=== PATIENT | female | born 1950 | race Caucasian/White ===

== ENCOUNTER 2022-09-15 05:51 | Observation (INO) ==
--- NOTE | 2022-09-10 16:21 | Anesthesiology Consultation ---
Date of Service September 10, 2022 Assessment & Plan (1) Encounter for pre-operative examination: Plan - check BSG am DOS. - COVID screening: Per nutrition faculty member on 09/10/2022: COVID positive 08/30/22, symptoms resolved. Chart Review Chart Review: Acceptable Risk for Surgery and Patient NOT seen in Pre Admission Testing History Surgery Operation Date: 09/15/22 13:55 Proposed Procedures p Total Thyroidectomy - Jimmie Coffman MD Height/Weight Height: 5 ft 3 in Weight: 83.461 kg Allergies Allergy/AdvReac Type Severity Reaction Status Date / Time No Known Allergies Allergy Unknown Verified 09/10/22 15:30 Medications Home Medications Medication Instructions Recorded Confirmed Last Taken pantoprazole 40 mg tablet,delayed 40 mg PO QPM 06/18/18 09/10/22 06/29/18 release amoxicillin 500 mg tablet 2,000 mg PO ONCE #4 tabs 07/08/19 09/10/22 Unknown aspirin 81 mg tablet,delayed 81 mg PO BID 06/09/22 09/10/22 Unknown release (Adult Low Dose Aspirin) atorvastatin 20 mg tablet 20 mg PO QPM #90 tabs 06/09/22 09/10/22 Unknown diclofenac sodium 1 % topical gel 2 g topical BID PRN Pain 06/09/22 09/10/22 Unknown ibuprofen 600 mg tablet 600 mg PO Q6H PRN pain #90 tabs 06/09/22 09/10/22 Unknown magnesium oxide 400 mg PO QAM 06/09/22 09/10/22 Unknown omega 7-jhw-flu-fish oil 1,200 mg 1 cap PO BID #60 caps 06/09/22 09/10/22 Unknown (144 mg-216 mg) capsule (Fish Oil) calcium carbonate 600 mg calcium 1,200 mg PO BID #30 tabs 06/13/22 09/10/22 Unknown (1,500 mg) tablet ijpzcgmocni-oukclgkxr-dyfv747-hyal 1 tab PO BID #180 tabs 06/13/22 09/10/22 Unknown 750 mg-100 mg-125 mg-1.65 mg tablet (Glucosamine Chondroit Complx Advan) quinapril 20 mg tablet 20 mg PO BID 06/13/22 09/10/22 Unknown Probiotic 1 cap PO QAM 09/10/22 09/10/22 Unknown ascorbic acid (vitamin C) 1,000 mg 1 g PO QAM 09/10/22 09/10/22 Unknown capsule atenolol 50 mg tablet 50 mg PO QAM 09/10/22 09/10/22 Unknown hydrochlorothiazide 12.5 mg capsule 12.5 mg PO QAM 09/10/22 09/10/22 Unknown levothyroxine 75 mcg tablet 75 mcg PO QAM 09/10/22 09/10/22 Unknown riboflavin (vitamin B2) 400 mg 400 mg PO QAM 09/10/22 09/10/22 Unknown tablet sertraline 50 mg tablet (Zoloft) 50 mg PO QPM 09/10/22 09/10/22 Unknown Past Medical History Medical History (Updated 09/10/22 @ 16:25 by Betty Woodward PA-C) AAA (abdominal aortic aneurysm) 2.5 x 2.5 cm, last imaging 06/2021 Frequent PVCs GERD (gastroesophageal reflux disease) Hyperlipidemia Hypertension Hypothyroidism Lung nodule PCP monitors Nausea and vomiting after administration of anesthetic agent SVT (supraventricular tachycardia) prn f/u with [facility] cardio Thyroid cancer Type 2 diabetes mellitus Past Family History Family History Mother Diabetes Hypertension Heart disease Myocardial infarction Father Hypertension Heart disease Brother Coronary heart disease Leukemia Heart disease Hypertension Kidney stones Sister Diabetes Uterine cancer Endometrial cancer Ovarian cancer Sister Hypertension Denies family history of Prostate cancer Breast cancer Colorectal cancer Past Surgical History Surgical History Cataract bilateral Ganglion cyst right wrist: twice H/O bladder repair surgery H/O medial meniscus repair of right knee H/O total hysterectomy has 1 ovary remaining History of appendectomy History of arthroscopy of right shoulder History of bilateral tubal ligation History of carpal tunnel surgery of right wrist History of colonoscopy History of elbow surgery Rt History of hysterectomy History of total knee replacement LEFT Hx of esophagogastroduodenoscopy Lump lump removed from right side of neck Social History Smoking Status: Never smoker Do You Dip or Chew Tobacco: No Hx Alcohol Use: Yes alcohol intake frequency: holidays/special occasions only Hx Substance Use: No substance use type: does not use Testing Electrocardiogram Date: 12/17/21 Sinus bradycardia, rate 58 bpm LVH Poor precordial R wave progression Nonspecific T wave abnormality Echocardiogram Date: 01/25/20 EF 65% Normal LV wall motion Grade I diastolic dysfunction No significant valvular pathology Negative bubble study Other Testing Soft tissue neck CT 08/15/22 1. The recently biopsied 2.2 cm left thyroid nodule correlates with the area of palpable concern. 2. No pathologically enlarged lymph nodes identified. 3. No acute inflammatory changes. 4. Maxillary sinus disease as above. 5. Partially imaged 4 mm subpleural nodule of the right upper lobe. This could be evaluated with a 6 month follow-up CT of the chest.
[2022-09-15] MEDS ORDERED: LR 15ML/HR IV SCH (06:00)
[2022-09-15] MEDS ORDERED: LIDOCAINE 2% MPF LOCAL 5 ML VIAL INFIL ONE (06:35)
[2022-09-15] MEDS ORDERED: ROCURONIUM BROMIDE 10 MG/ML 5 ML VIAL IV ONE (06:35)
[2022-09-15] MEDS ORDERED: PROPOFOL IV EMULSION 10 MG/ML 20 ML VIAL IV ONE (06:35)
[2022-09-15] MEDS ORDERED: fentaNYL citrate PF 100 MCG/2 ML VIAL ONE (06:36)
[2022-09-15] MEDS ORDERED: MIDAZOLAM HCL 1 MG/ML 2ML VIAL ONE (06:36)
--- NOTE | 2022-09-15 06:49 | History & Physical Report ---
Date of Service September 15, 2022 Assessment & Plan (1) Encounter for pre-operative examination: (2) Papillary carcinoma of thyroid: Plan Ms. Westfall is a 72 year old female with a biopsy of the LEFT thyroid lobe showing follicular variant of papillary thyroid carcinoma who presents today for total thyroidectomy. History of Present Illness Primary Care Provider: Alma Bob DO Ms. Westfall is a 72 year old female with a biopsy of the LEFT thyroid lobe showing follicular variant of papillary thyroid carcinoma who presents for total thyroidectomy. There was extrathyroidal extension commented on the ultrasound, with no significant extension on CT imaging. Allergies Allergy/AdvReac Type Severity Reaction Status Date / Time No Known Allergies Allergy Unknown Verified 09/15/22 06:20 Home Medications Medication Instructions Recorded Confirmed Type pantoprazole 40 mg tablet,delayed 40 mg PO QPM 06/18/18 09/15/22 History release amoxicillin 500 mg tablet 2,000 mg PO ONCE #4 tabs 07/08/19 09/15/22 Rx aspirin 81 mg tablet,delayed 81 mg PO BID 06/09/22 09/15/22 History release (Adult Low Dose Aspirin) atorvastatin 20 mg tablet 20 mg PO QPM #90 tabs 06/09/22 09/15/22 Rx diclofenac sodium 1 % topical gel 2 g topical BID PRN Pain 06/09/22 09/15/22 History ibuprofen 600 mg tablet 600 mg PO Q6H PRN pain #90 tabs 06/09/22 09/15/22 Rx magnesium oxide 400 mg PO QAM 06/09/22 09/15/22 History omega 8-egj-ies-fish oil 1,200 mg 1 cap PO BID #60 caps 06/09/22 09/15/22 Rx (144 mg-216 mg) capsule (Fish Oil) calcium carbonate 600 mg calcium 1,200 mg PO BID #30 tabs 06/13/22 09/15/22 Rx (1,500 mg) tablet oniwovjhycc-cqbxehpdr-vhwr137-hyal 1 tab PO BID #180 tabs 06/13/22 09/15/22 Rx 750 mg-100 mg-125 mg-1.65 mg tablet (Glucosamine Chondroit Complx Advan) quinapril 20 mg tablet 20 mg PO BID 06/13/22 09/15/22 History Probiotic 1 cap PO QAM 09/10/22 09/15/22 History ascorbic acid (vitamin C) 1,000 mg 1 g PO QAM 09/10/22 09/15/22 History capsule atenolol 50 mg tablet 50 mg PO QAM 09/10/22 09/15/22 History hydrochlorothiazide 12.5 mg capsule 12.5 mg PO QAM 09/10/22 09/15/22 History levothyroxine 75 mcg tablet 75 mcg PO QAM 09/10/22 09/15/22 History riboflavin (vitamin B2) 400 mg 400 mg PO QAM 09/10/22 09/15/22 History tablet sertraline 50 mg tablet (Zoloft) 50 mg PO QPM 09/10/22 09/15/22 History Past Med/Surg History Medical History AAA (abdominal aortic aneurysm) 2.5 x 2.5 cm, last imaging 06/2021 Frequent PVCs GERD (gastroesophageal reflux disease) Hyperlipidemia Hypertension Hypothyroidism Lung nodule PCP monitors Nausea and vomiting after administration of anesthetic agent SVT (supraventricular tachycardia) prn f/u with [facility] Thyroid cancer Type 2 diabetes mellitus listed in [facility] records, pt denies Surgical History Cataract bilateral Ganglion cyst right wrist: twice H/O bladder repair surgery H/O medial meniscus repair of right knee H/O total hysterectomy has 1 ovary remaining History of appendectomy History of arthroscopy of right shoulder History of bilateral tubal ligation History of carpal tunnel surgery of right wrist History of colonoscopy History of elbow surgery Rt History of hysterectomy History of total knee replacement LEFT Hx of esophagogastroduodenoscopy Lump lump removed from right side of neck Family History Mother Diabetes Hypertension Heart disease Myocardial infarction Father Hypertension Heart disease Brother Coronary heart disease Leukemia Heart disease Hypertension Kidney stones Sister Diabetes Uterine cancer Endometrial cancer Ovarian cancer Sister Hypertension Denies family history of Prostate cancer Breast cancer Colorectal cancer Social History Smoking Status: Never smoker Second Hand Exposure: Yes; Do You Dip or Chew Tobacco: No; Hx Alcohol Use: Yes Hx Substance Use: No Preferred Language: Singaporean Communication Ability: Effective Service Supervisor Required: No Beliefs That Will Affect Care: None marital status: Current Living Situation: Spouse current occupational status: employed current occupation: works in [employer] at [employer] Feels Safe at Home: Yes Safety Concerns: Feels Safe At This Time Childhood Exposure to Second-Hand Smoke: Yes Dental Care, Regularly: Yes Seatbelt Use: always Sunscreen Use: Yes Assistive Devices: None Physical Exam Physical Exam: GENERAL: NAD, AOx3 FACE: Symmetric and intact EYES: EOMI, reactive and symmetric pupils EARS: Auricles are symmetric, external auditory canals are free of cerumen and patent; Tympanic membrane is clear without effusion, retraction, and lesions NOSE: Mild external deviation, mucosa intact; no polyps, purulence, or masses ORAL CAVITY: No trismus; Mucosal intact without lesions, ulcerations, or superficial changes; Tongue mobile OROPHARYNX: No masses or bleeding; No underlying changes of tonsillar pillars and pharyngeal mucosa; Symmetric palatal rise NECK: No masses, lymphadenopathy, or salivary tumors; Trachea midline RESPIRATORY: Symmetric chest expansion, no wheezing, stridor, or shortness of breath CARDIAC: Warm and well perfused extremities, no evidence of peripheral vascular disease NEURO: Alert and oriented, CNII-XII grossly intact PG Care Time/CCT Total # of Minutes Spent Total Time Spent with Patient: Total time spent is greater than 50% in coordination of care (as documented) at patient's floor/unit and/or counseling patient: Coding Level of Care Code None Diagnoses Encounter for pre-operative examination Z01.818 Papillary carcinoma of thyroid C73
[2022-09-15] MEDS ORDERED: ceFAZolin 2000MG 2,000 MG/15 ML SYR IV ONE (06:59)
[2022-09-15] MEDS ORDERED: ceFAZolin 2,000 MG/15 ML IV PUSH IV ONE (07:01)
[2022-09-15] MEDS ORDERED: LIDOCAINE/EPINEPHRINE 1% 20 ML VIAL INFIL ONE (07:06)
[2022-09-15] MEDS ORDERED: GELATIN SPONGE 12-7MM ONE ×2 (07:06→08:08)
[2022-09-15] MEDS ORDERED: LIDOCAINE/EPINEPHRINE 1% 20 ML VIAL ONE (07:06)
[2022-09-15] MEDS ORDERED: SCOPOLAMINE 1 MG TDSY TD ONE (07:19)
[2022-09-15] MEDS ORDERED: SCOPOLAMINE 1 MG TDSY TD STA (07:32)
[2022-09-15] MEDS ORDERED: PROMETHAZINE HCL 12.5 MG in SODIUM CHLORIDE 0.9% 50 ML IV PRN (07:33)
[2022-09-15] MEDS ORDERED: ATROPINE SULFATE 0.1 MG/ML 10ML SYR IV PRN (07:33)
[2022-09-15] MEDS ORDERED: ONDANSETRON INJ 2 MG/ML 2 ML VIAL IV PRN (07:33)
[2022-09-15] MEDS ORDERED: ePHEDrine sulfate 50 MG/ML AMP IV PRN (07:33)
[2022-09-15] MEDS ORDERED: ONDANSETRON INJ 2 MG/ML 2 ML VIAL ONE ×2 (08:30→11:47)
[2022-09-15] MEDS ORDERED: DEXAMETHASONE SOD INJ 4 MG/ML VIAL ONE ×2 (08:30→08:31)
[2022-09-15] MEDS ORDERED: ceFAZolin 330 MG/ML 1 GM VIAL ONE (10:30)
[2022-09-15] MEDS ORDERED: GLYCOPYRROLATE 0.2 MG/ML VIAL ONE ×2 (11:11)
[2022-09-15] MEDS ORDERED: NEOSTIGMINE METHYLSULFATE 1 MG/ML 10ML VIAL ONE (11:11)
--- NOTE | 2022-09-15 11:27 | Post Operative Brief Note ---
PG Immediate Post Op with CF Date of Surgery September 15, 2022 Pre & Post Diagnosis Operation Date: 09/15/22 07:15 Pre-Op Diagnosis: Papillary carcinoma of thyroid Post-Op Diagnosis: Papillary carcinoma of thyroid I identified the patient and participated in the time-out.: Yes Procedure Operation Date: 09/15/22 07:15 Actual Procedures p Bilateral Total Thyroidectomy(Bilateral) - Luc Mooney MD Surgeon Luc Mooney MD Pole Frame Construction Worker Jimmie Coffman Estimated Blood Loss 40 Findings Consistent with Post-Op Diagnosis Adherent thyroid nodule with removal of surrounding strap muscles and identification and preservation of the nerve. Stimulated both nerves bilaterally throughout and again at the end of the case. Specimens Specimen Description: A. Left neck mass, evaluate for parathyroid (frozen section) B. Left thyroid C. Right thyroid
[2022-09-15] MEDS: HYDROmorphone INJ 1 MG/ML SYRINGE IV PRN ×4 (11:54→12:10)
[2022-09-15] MEDS ORDERED: oxyCODONE HCL IR 5 MG TAB (IMMEDIATE RELEASE) PO PRN (12:04)
[2022-09-15] MEDS ORDERED: diphenhydrAMINE 50 MG/ML VIAL IV ONE (12:27)
[2022-09-15] MEDS ORDERED: PROMETHAZINE HCL INJ 25 MG/ML 1 ML VIAL ONE (12:29)
[2022-09-15] MEDS ORDERED: SODIUM CHLORIDE 0.9% 50 ML BAG ONE (12:29)
[2022-09-15] MEDS: CALCIUM CARBONATE 1250MG TAB PO SCH ×2 (14:01→20:03)
[2022-09-15] MEDS: ACETAMINOPHEN 325 MG TAB PO SCH ×2 (14:02→20:03)
[2022-09-15] MEDS: CHECK SCOPOLAMINE PATCH PLACEMENT SCH (16:32)
[2022-09-16] MEDS: CHECK SCOPOLAMINE PATCH PLACEMENT SCH ×3 (00:08→16:26)
[2022-09-16] MEDS: ACETAMINOPHEN 325 MG TAB PO SCH ×4 (01:55→19:34)
[2022-09-16] MEDS ORDERED: LEVOTHYROXINE SODIUM 50 MCG TABLET PO SCH (06:30)
[2022-09-16] MEDS: CALCIUM CARBONATE 1250MG TAB PO SCH ×4 (08:21→20:40)
--- NOTE | 2022-09-29 01:24 | Operative Report ---
PG Post Operative Report Pre & Post Diagnosis Operation Date: 09/15/22 07:15 Pre-Op Diagnosis: Papillary carcinoma of thyroid Post-Op Diagnosis: Papillary carcinoma of thyroid I identified the patient and participated in the time-out.: Yes Procedure Operation Date: 09/15/22 07:15 Actual Procedures p Bilateral Total Thyroidectomy(Bilateral) - Luc Mooney MD Surgeon Luc Mooney MD Rubber Covering Machine Operator Jimmie Coffman Estimated Blood Loss 40 Findings Consistent with Post-Op Diagnosis Hard thyroid mass nearly encapsulating the left thyroid lobe that initially limited mobility and exposure of the recurrent laryngeal nerve posteriorly and required resection of strap musculature and dissection along the cricoid and thyroid cartilages directly to mobilize the nodule. Ultimately, this increased the difficulty, intensity, and added a substantial amount of time to the case, meeting criteria for a modifier 22. No other enlarged nodules; Nerve stimulated during, throughout, after resection of each lobe bilaterally, and at the end of the case; Three parathyroid glands left in place. Specimens Specimen(s): 1. Total Thyroidectomy 2. Left neck mass, evaluate for parathyroid tissue Anesthesia Type General Complications None Disposition Disposition: Recovery Room Indications Indications for Surgery: is a 72 year old female who presentedwith papillary thyroid carcinoma with extrathyroidal extension noted on ultrasonography who presents for total thyroidectomy. Sheelected to undergo the indicated procedure after extensive discussion regarding the risks,alternative options, and indicationsfor the surgery andpotential for radioactive iodinetreatment.Surgicalrisk in generalincludesbleeding, infection, damage to surrounding structures, scarring and poor wound healing, need for additional procedures, and uncommon but serious risks of general anesthesia. We additionally discussed intervention-specific risks which include hypoparathyroidism/hypocalcemia, recurrent laryngeal nerve injury, esophageal and tracheal injury, persistent or recurrent disease, and need for pathology-guided adjuvant therapy. Description of Procedure Operative Report Otolaryngology - Head and Neck Surgery OperativeDetails: The skin, subcutaneous tissue, and superficial fascia were incised sharply and the vertical extent of the resection was widely exposed. The sternohyoid muscles and intermuscular raphe were in the midline while avoiding the anterior jugular veins. The sternohyoid, followed by the sternothyroid muscles, were undermined and retracted laterally to reveal the substance of the thyroid gland. The deep strap muscles were attempted to be lifted and elevated away from the midline, however, a large thyroid mass obscured the normal fascial planes. While gross extrathyroidal extension was not obvious, there was certainly an i nflammatory or reactive fibrotic process at the least and the overlying strap muscles were left attached to the specimen, carrying the dissection more superficial to the posterior aspect of the muscle where the thyroid capsule and more typical plane of dissection was rejoined. Medially, the gland was mobilized from the tracheal cartilage up to the cricothyroid muscle, with visualization but without manipulation of the cricopharyngeus and underlying recurrent laryngeal nerve. Continuing towards the superior pole, the thyroid was retracted downwards and outwards, but required direct exposure and dissection of the perichondrium with an additional cuff of cricothyroidal muscle included with the specimen along the deep aspect of the thyroid. Once the deep portion was mobilized from the away from the cartilage suprastructure of the larynx, it was then mobile and inferior distraction splayed the soft tissue and fascial attachments which were transected until the superior neurovascular bundle was identified, cauterized, clipped, and divided. The superior thyroid artery and accompany veins were ligated at the capsule edge to protect the superior laryngeal nerve, which rests just adjacent. Dissection of the lateral and inferior aspect of the thyroid gland were similar, with continue to release the gland's capsule from its surrounding attachments and associated arteries and veins. As the inferior pole and medially components of the gland were liberated, the gland rolled over the trachea and the anatomical landmarks for the recurrent laryngeal nerve were slowly identified. While continuing to focus dissection in asupracapsular plane, a frozen section pathological specimen was negative, confirming there was not parathyroid tissue in a lobulated mass extending from the capsule and ultimately two parathyroid glands were preserved on this side. Although the nerve had not been specifically identified as of yet, the recurrent laryngeal nerve was uncovered given that its general vicinity and trajectory was more apparent after unveiling the spacial relationships between the cricopharyngeus muscle, cricothyroid joint, and proximal tracheoesophageal groove. Carefully, the nerve was traced to its entry into the larynx while releasing the thyroid from lateral to medial. To minimize neural trauma, devascularization, and shearing forces, we preferentially dissected on the thyroid and tracheal side if possible, and the nerve and surrounding tissues descended into the neck as the thyroid was released over the airway. Pre-Operative Briefing, Surgical Preparation, and Closure: Ms. Westfall was brought into the operating room, identified by name and medical record number, and transferred to the surgical table. She was preoxygenated, induced, and intubated by the anesthesia team with aneuromonitoringendotracheal tube using a visual display laryngoscope, her eyes were protected, and she was appropriately positioned and supported. Afterwards, time-out reconfirmed patient identity and medical record number and the operative team confirmed the operative site and laterality. Relevant images were displayed and team briefing verified patient-specific allergies, administration of antibiotic prophylaxis prior to surgical start, deep venous thrombosis prophylaxis, and any anticipated critical events, including blood loss, need for transfusion, vasopressor support, and airway concerns. The neck was extended with appropriate occipital support and thelaryngeal neuromonitoringsystem was confirmed to be functioning. A midline incision approximately 3 cm in length was designed and injected with lidocaine 1% with 1:100,000 epinephrine and the patient was prepped and draped. After removal of the thyroid gland, the neck wound was irrigated, hemostasis re- confirmed, and theremaining strap musculature was approximated with 3-0 vicryl sutures. The prior mobilized fasciocutaneous flaps were incorporated together through a multi-layer closurewith separate 3-0 vicryls layers for the platysma and deep dermis after which the cutaneous edges were reapposed with4-0 monocrylsfollowed by mastisol and steri-strips. At the conclusion of the surgical portion of the case,one drain was in place,there were no complications,and the patient was returned to the care of the anesthesia team. The name of the procedure was confirmed, all counts were correct, and the pathologic specimens were oriented and correctly labeled. I attest to the content of the Intraoperative Record and any orders documented therein. Any exceptions are noted below.
== END 2022-09-16 22:05 | disposition home or self-care (01) ==
LOC: ASU 05:51 → 3N 05:51

== ENCOUNTER 2024-11-11 08:29 | Observation (INO) ==
--- NOTE | 2024-10-19 12:56 | PAT Medication Instructions ---
Medication Instructions Date of Service October 19, 2024 Home Medications Medication Instructions Recorded ibuprofen 600 mg tablet 600 mg PO Q6H PRN pain #90 tabs 06/09/22 amoxicillin 500 mg tablet 2,000 mg (4 x 500 mg) PO ONCE #4 09/17/22 tabs ascorbic acid (vitamin C) 1,000 mg 1 g PO QAM #90 caps 10/01/22 capsule aspirin 81 mg tablet,delayed 81 mg PO BID #90 tabs 10/01/22 release (Adult Low Dose Aspirin) calcium carbonate 1,200 mg (2 x 600 mg calcium 10/01/22 (1,500 mg)) PO BID #180 tabs ipynojmljky-glxtxrkce-mwid603-hyal 1 tab PO BID #180 tabs 10/01/22 750 mg-100 mg-125 mg-1.65 mg tablet (Glucosamine Chondroit Complx Advan) magnesium oxide 400 mg PO QAM #90 caps 10/01/22 omega 4-cgt-faa-fish oil 1,200 mg 1 cap PO BID #180 caps 10/01/22 (144 mg-216 mg) capsule (Fish Oil) atenolol 50 mg tablet 50 mg PO QAM #90 tabs 10/05/23 lisinopril 40 mg tablet 40 mg PO QAM #90 tabs 10/05/23 hydrochlorothiazide 12.5 mg capsule 12.5 mg PO QAM #90 caps 11/25/23 sertraline 50 mg tablet (Zoloft) 50 mg PO QPM #90 tabs 03/25/24 atorvastatin 20 mg tablet 20 mg PO QPM #90 tabs 06/13/24 pantoprazole 40 mg tablet,delayed 40 mg PO BID #180 tabs 06/13/24 release diclofenac sodium 75 mg 75 mg PO BID PRN pain #60 tabs 08/17/24 tablet,delayed release ibuprofen 600 mg tablet 600 mg PO Q6H PRN pain Probiotic 1 cap PO QAM amoxicillin 500 mg tablet 2,000 mg (4 x 500 mg) PO ONCE ascorbic acid (vitamin C) 1,000 mg capsule 1 g PO QAM aspirin 81 mg tablet,delayed release (Adult Low Dose Aspirin) 81 mg PO BID calcium carbonate 1,200 mg (2 x 600 mg calcium (1,500 mg)) PO BID oypxauzjtbi-fkjozqsgn-ncoo727-hyal 750 mg-100 mg-125 mg-1.65 mg tablet (Glucosamine Chondroit Complx Advan) 1 tab PO BID magnesium oxide 400 mg PO QAM omega 6-qpr-gtu-fish oil 1,200 mg (144 mg-216 mg) capsule (Fish Oil) 1 cap PO BID atenolol 50 mg tablet 50 mg PO QAM lisinopril 40 mg tablet 40 mg PO QAM hydrochlorothiazide 12.5 mg capsule 12.5 mg PO QAM sertraline 50 mg tablet (Zoloft) 50 mg PO QPM atorvastatin 20 mg tablet 20 mg PO QPM pantoprazole 40 mg tablet,delayed release 40 mg PO BID diclofenac sodium 75 mg tablet,delayed release 75 mg PO BID PRN pain levothyroxine 75 mcg tablet 75 mcg PO QAM liothyronine 5 mcg tablet 10 mcg PO QAM polyethylene glycol 3350 17 gram/dose oral powder (Miralax) 17 g PO HS psyllium husk 3.4 gram/5.4 gram oral powder (Metamucil) 1 tbsp PO QAM Continue as directed amoxicillin 500 mg tablet 2,000 mg (4 x 500 mg) PO ONCE ASK your surgeon for instructions ibuprofen 600 mg tablet 600 mg PO Q6H PRN pain diclofenac sodium 75 mg tablet,delayed release 75 mg PO BID PRN pain ASK your prescriber and surgeon aspirin 81 mg tablet,delayed release (Adult Low Dose Aspirin) 81 mg PO BID STOP taking 2 weeks before surgery inuonncdqgg-nuwnklyke-bdez598-hyal 750 mg-100 mg-125 mg-1.65 mg tablet (Glucosamine Chondroit Complx Advan) 1 tab PO BID omega 2-cvs-mgk-fish oil 1,200 mg (144 mg-216 mg) capsule (Fish Oil) 1 cap PO BID DO NOT take the morning of surgery Probiotic 1 cap PO QAM ascorbic acid (vitamin C) 1,000 mg capsule 1 g PO QAM calcium carbonate 1,200 mg (2 x 600 mg calcium (1,500 mg)) PO BID magnesium oxide 400 mg PO QAM lisinopril 40 mg tablet 40 mg PO QAM hydrochlorothiazide 12.5 mg capsule 12.5 mg PO QAM psyllium husk 3.4 gram/5.4 gram oral powder (Metamucil) 1 tbsp PO QAM Take morning of surgery With a small sip of water, OTHERWISE NOTHING TO EAT OR DRINK AFTER MIDNIGHT: atenolol 50 mg tablet 50 mg PO QAM pantoprazole 40 mg tablet,delayed release 40 mg PO BID levothyroxine 75 mcg tablet 75 mcg PO QAM liothyronine 5 mcg tablet 10 mcg PO QAM Take evening before surgery calcium carbonate 1,200 mg (2 x 600 mg calcium (1,500 mg)) PO BID sertraline 50 mg tablet (Zoloft) 50 mg PO QPM atorvastatin 20 mg tablet 20 mg PO QPM pantoprazole 40 mg tablet,delayed release 40 mg PO BID polyethylene glycol 3350 17 gram/dose oral powder (Miralax) 17 g PO HS Other Notes If you have any questions please call us at [phone] or [phone] or [phone] or [phone]
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
[~2024-11-11 08:29] MED LIST: BUPIVACAINE 0.5 % 5 MG/1 ML PF 10ML VIAL ONE; ROPIVACAINE 0.5% 5 MG/ML 30 ML VIAL ONE
--- NOTE | 2024-11-11 08:39 | History & Physical Bridge Note ---
Date of Service November 11, 2024 History & Physical Bridge Note I have examined the patient, reviewed the History & Physical and in the interval since the performance of the History & Physical I have noted the following changes of clinical significance: no changes noted
[2024-11-11] MEDS ORDERED: ATROPINE SULFATE 0.1 MG/ML 10ML SYR IV PRN (08:56)
[2024-11-11] MEDS ORDERED: ONDANSETRON INJ 2 MG/ML 2 ML VIAL IV PRN ×2 (08:56→17:40)
[2024-11-11] MEDS ORDERED: HYDROmorphone INJ 1 MG/ML SYRINGE IV PRN (08:56)
[2024-11-11] MEDS ORDERED: fentaNYL citrate PF 100 MCG/2 ML VIAL IV PRN (08:56)
[2024-11-11] MEDS ORDERED: ePHEDrine sulfate 50 MG/ML AMP IV PRN (08:56)
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
[2024-11-11] MEDS: LR 500ML BOLUS, THEN 15ML/HR IV SCH (09:01)
[2024-11-11] MEDS: ACETAMINOPHEN 500 MG TAB PO SCH ×2 (09:02→18:29)
[2024-11-11] MEDS: CeleBREX 200 MG CAP PO SCH (09:02)
[2024-11-11] MEDS: METOCLOPRAMIDE HCL 10 MG TABLET PO SCH (09:02)
[2024-11-11] MEDS: FAMOTIDINE 20 MG TAB PO SCH (09:02)
[2024-11-11] MEDS: dexAMETHasone**PF** 10 MG/ML VIAL IV SCH (09:04)
[2024-11-11] MEDS ORDERED: MIDAZOLAM HCL 1 MG/ML 2ML VIAL ONE (09:41)
[2024-11-11] MEDS ORDERED: LIDOCAINE 2% 2 ML VIAL/AMP(20MG/ML) INFIL ONE (09:42)
[2024-11-11] MEDS ORDERED: fentaNYL citrate PF 100 MCG/2 ML VIAL ONE (09:42)
--- OUTSIDE RECORDS SUMMARY | 2024-11-11 10:05 | External Medical Summary | Summary of Care ---
Author Name Unknown Organization [facility] Address [address] [place] [address] Phone [phone] Care Team Providers Care Cryptography Teacher Name Role Phone Alma Bob DO Primary Care Provider + Encounter Details Date Type Department Care Team (Latest Contact Info) Description 11/01/2024 10:28 AM EDT - 11/01/2024 11:59 PM EDT Hospital Encounter Radiology, [facility] [address] [place] [address] Arrived Discharge Disposition: Home - Self Care Allergies No known active allergiesdocumented as of this encounter (statuses as of 11/02/2024) Medications GLUCOSAMINE CHONDROITIN COMPLX PO CAPS 1500mg/1200mg twice daily by mouth 2 Active OMEGA-3 FISH OIL 1200 MG PO CAPS twice daily by mouth 2 Active CALCIUM 9644-5763 MG-UNIT PO CHEW 1chew tab by mouth twice daily 5 Active zoster vac recomb adjuvanted (SHINGRIX) 50 MCG/0.5ML injectionIndicat ions:Need for vaccination for zoster Inject 0.5 mL into a large muscle now and repeat dose in 60 to 180 days 1 Each 1 0 Active aspirin enteric coated 81 MG TBEC Take 2 Tablets by mouth in the morning. Active Riboflavin 400 MG Oral Tablet Take 1 Tab by mouth daily. 30 Tab 2 1 Active Magnesium Oxide 400 MG Oral Capsule Take 1 Cap by mouth daily. 30 Cap 2 1 Active Diclofenac Sodium 1 % External Gel (Voltaren)Indica tions:Joint swelling Apply 2 g topically to affected area 2 times a day. 100 g 3 1 Active Amoxicillin 500 MG Oral Capsule (Amoxil) 4 TABLETS BY MOUTH 1 HR PRIOR TO DENTAL PROCEDURE 4 Capsule 1 Active Pantoprazole Sodium 40 MG Oral Tablet Delayed Release (Protonix)Indica tions:Gastroesop hageal reflux disease without esophagitis TAKE ONE (1) TABLET BY MOUTH ONCE DAILY FOR STOMACH ACID -TAKE 1/2HOUR BEFORE A MEAL 90 Tablet 3 2 Active Atorvastatin Calcium 20 MG Oral Tablet (Lipitor)Indicat ions:Hyperlipide roxanna TAKE 1 TABLET DAILY AT SUPPER 90 Tablet 2 2 Active Atenolol 50 MG Oral Tablet (Tenormin) TAKE 1 TABLET BY MOUTH EVERY DAY 90 Tablet 2 2 Active Docusate Sodium 100 MG Oral Capsule (Colace) Take by mouth 1 Capsule 2 times a day as needed for Constipation. 20 Capsule 2 Active Additional Information Patient not taking.Reported on 12/05/2022 Simethicone 80 MG Oral Tablet Chewable (Mylicon) Take by mouth 1 Tablet every 6 hours as needed for Gas. 30 Tablet 2 Active Levothyroxine Sodium 75 MCG Oral Tablet (Levoxyl) TAKE 1 TABLET BY MOUTH EVERY DAY AT LEAST 30 MIN BEFORE BREAKFAST OR OTHER MEDICATION 90 Tablet 1 2 Active Estradiol 0.1 MG/GM Vaginal Cream (Estrace) Administer 1 gram into the vagina every night for 30 days after surgery 42.5 g 2 Active Estradiol 0.1 MG/GM Vaginal Cream (Estrace) Administer into the vagina 1 g once a day on Thursday, Thursday, and Thursday only . as directed. 42.5 g 3 2 Active Ibuprofen 600 MG Oral Tablet (Motrin)Indicati ons:Chronic pain TAKE 1 TAB BY MOUTH EVERY 8 HOURS NEEDED FOR FEVER (TEMP GREATER THAN ) (PAIN). 90 Tablet 5 2 Active Additional Information Patient not taking.Reported on 01/05/2023 hydroCHLOROthiaz lizabeth 12.5 MG Oral Capsule (Hydrodiuril)Ind ications:HTN, goal below 140/90 TAKE 1 CAPSULE BY MOUTH EVERY DAY 90 Capsule 3 2 Active Sertraline HCl 50 MG Oral Tablet Take 1 Tablet by mouth in the morning. Active Lisinopril 40 MG Oral Tablet 40 MG ORALLY DAILY 3 Active HYDROcodone-Acet aminophen 5-325 MG Oral Tablet Take 1 Tablet by mouth every 6 hours as needed for Pain, Severe. 10 Tablet 3 Active Additional Information Patient not taking.Reported on 01/05/2023 documented as of this encounter (statuses as of 11/02/2024) Active Problems Problem Noted Date Diagnosed Date Vaginal vault prolapse, posthysterectomy 022 Stress incontinence, female 12/18/2021 Post-operative state 12/18/2021 SVT (supraventricular tachycardia) 08/14/2020 Thyroid nodule 08/11/2019 Controlled substance agreement signed 05/10/2019 Type 2 diabetes mellitus wit h hemoglobin A1c goal of less than 7.0% 07/29/2018 Hyperlipidemia with target LDL less than 70 06/13 HTN, goal below 140/90 08/15/2016 Acquired hypothyroidism 03/07/2016 Cervical nerve root impingement 03/21/2014 Frequent PVCs 12/27/2013 Gastroesophageal reflux disease without esophagi tis Overview (08/10/2019): Corrected code per AMP error Osteoarthrosis, localized, primary, involving lo wer leg Overview (04/15/2021): ICD-10 update of inactive term ICD-10 update of inactive term documented as of this encounter (statuses as of 11/02/2024) Resolved Problems Problem Noted Date Diagnosed Date Resolved Date Abdominal aortic aneurysm (A AA) without rupture 05/10/2019 09/21/2023 Overview (05/10/2019): On xray, accidental finding, 4.3 cm in 2019 Type 2 diabetes mellitus wit h diabetic neuropathy, unspecified 02/04/2019 02/04/2019 Encounter for examination fo r normal comparison and control in clinical research program 11/01/2018 02/13/2020 Overview (10/29/2020): DO NOT DELETE [facility] DETECT Study: Project # [id number], Freight Broker: Jose Juan Thorne, PhD. SUMMARY: Goal: Establish test characteristics (sensitivity, specificity, PPV, NPV) of a circulating tumor DNA (ctDNA)-based test for cancer. Hypothesis: Circulating tumor DNA (ctDNA) and elevated protein biomarkers (together, the marker panel) can be detected in asymptomatic individuals with early cancer. Specific Aim 1: Determine the prevalence of a positive marker panel test in a prospective clinical cohort of 10,000 asymptomatic women ages 65 to 75 years. Specific Aim 2: Determine the sensitivity, specificity, positive predictive value (PPV) and negative predictive value (NPV) of a marker panel test to identify histologically proven cancers that develop within 5-years of the marker panel evaluation. CONTACTS: During normal business hours, contact study staff at ; after hours Freight Broker via the [facility] hospital badger distiller operator . Please contact study team before resolving/deleting from patients problem list. Study phone number: [phone]. Diagnosis changed due to Research Module. Go to Snapshot for study details. Encounter for examination fo r normal comparison and control in clinical research program 11/01/2018 03/13/2022 Overview (10/29/2020): DO NOT DELETE - [facility] DETECT Study: Project # [id number], Freight Broker: Salvador Servin, MS, MPH. SUMMARY: Goal: Establish test characteristics (sensitivity, specificity, PPV, NPV) of a circulating tumor DNA (ctDNA)-based test for cancer. - Hypothesis: Circulating tumor DNA (ctDNA) and elevated protein biomarkers (together, the marker panel) can be detected in asymptomatic individuals with early cancer. - Specific Aim 1: Determine the prevalence of a positive marker panel test in a prospective clinical cohort of 10,000 asymptomatic women ages 65 to 75 years. - Specific Aim 2: Determine the sensitivity, specificity, positive predictive value (PPV) and negative predictive value (NPV) of a marker panel test to identify histologically proven cancers that develop within 5-years of the marker panel evaluation. - CONTACTS: During normal business hours, contact study staff at ; after hours Freight Broker via the [facility] hospital badger distiller operator . - Please contact study team before resolving/deleting from patients problem list. Study phone number: [phone]. Diagnosis changed due to Research Module. Go to Snapshot for study details. Severe obesity with body mas s index (BMI) of 35.0 to 39.9 with serious comorbidity 10/14/2017 Overview (04/28/2018): ICD-10 update of inactive diagnosis Borderline diabetes 01/02/2017 05/03/20 19 Overview (05/03/2019): DM Type [address] HTN, goal below 140/80 08/15/201608/15 Depression with anxiety 03/07/201610/12 Acute stress reaction causin g mixed disturbance of emotion and conduct 03/07/201607/10 Abnormal fasting glucose 11/02/2015 TSH elevation 11/02/2015 07/10/2017 HTN, goal below 150/90 12/18/201412/18 Open comedone 12/05/2014 07/10/2017 Other seborrheic keratosis 12/05/2014 1 Palpitations 12/27/2013 07/10/2017 Shortness of breath 12/27/2013 12/19/19 16 HTN, goal below 140/90 12/27/201312/18 Disorder of lip 11/16/2008 11/16/2008 Overview (04/13/2017): ICD-10 update of inactive term Disorder of lip 11/16/2008 02/04/2019 Overview (04/13/2017): ICD-10 update of inactive term HTN, goal to be determined 0 09/22/2014 Hyperlipidemia 12/19/2015 Pain in joint, upper arm Malaise and fatigue 07/10/20 17 documented as of this encounter (statuses as of 11/02/2024) Immunizations Name Administration Dates Next Due COVID-19 mRNA, LNP-s, No Pre serve, 2-Dose Series (Moderna) 04/17/2021,09/17/2020,08/15/2020 Pneumococcal Conjugate Vacc, 13 Valent (Prevnar) 09/22/2014 Pneumococcal Polysaccharide PPV23 (Pneumovax) 06/18/2015 Season Influenza, Quad, PF, Adjuvanted, 65+ Yrs, IM (FLUAD) 04/27/2021 Seasonal Influenza Vac., MDV , IM, 0.5 mL (Fluzone) 09/13/2013,07/23/2012,04/11/2011,04/12,03/28/2009 Seasonal Influenza, PF, 6 M & above, IM , (FluLaval or Fluzone) 04/27/2018,07/10/2017 Seasonal Influenza, Quadriva lent Hd, 65+ Yrs 05/10/2020 Seasonal Influenza, Quadriva lent, No Preserve, IM 04/18/2016,06/18/2015 Seasonal Influenza, Trivalen t, Adjuvanted, 65+ YRS, PF, (Fluad) 04/16/2019 TDAP, Age 7 and older, IM (Adacel) 09/13/2013 Tetanus Toxid Adsorbed 02/16/2001 Varicella Zoster Vaccine Albert lt (Zostavax) 12/11/2012 Zoster Vaccine Recombinant (Shingrix) 08/08/2019 documented as of this encounter Social History Tobacco Use Types Packs/Day Years Used Date Smoking Tobacco: Never Smokeless Tobacco: Never Alcohol Use Standard Drinks/Week Comments Yes 0 (1 standard drink = 0.6 oz pur e alcohol) social PHQ-2 Answer Date Recorded PHQ Adult Total Score 0 06/26/2021 Hunger Vital Sign Answer Date Recorded Worried About Running Out of Food in the Last Ye ar Never true 08/08/2019 Ran Out of Food in the Last Year Never true 08/08/2019 Comments No Sex and Gender Information Value Date Recorded Sex Assigned at Female 08/30/2022 10:35 AM EST Legal Sex Female 5:50 AM EST Gender Identity Female 08/30/2022 10:35 AM EST Sexual Orientation Straight 08/30/2022 10 :35 AM EST documented as of this encounter Plan of Treatment Upcoming Encounters Date Type Department Care Team (Late st Contact Info) Description 04/03/2025 3:10 PM EDT Office Visit Dermatology, [facility] [place] [address] [place] [address] Gail Mccurdy PA-C [address] [place] [id number] Pending Results Name Type Priority Associated Diagnoses Date /Time US HEAD AND NECK Medical Imaging Routine Personal history of malignant neoplasm of thyroid 11/01/2024 10:56 AM EDT Scheduled Orders Name Type Priority Associated Diagnoses Orde r Schedule US HEAD AND NECK Medical Imaging Routine Personal history of malignant neoplasm of thyroid 1 Occurrences starting 11/01/2024 until 11/01/2024 Scheduled Procedures Name Priority Associated Diagnoses Date/Ti me COLONOSCOPY FLEXIBLE PROXIMA L DIAGNOSTIC Recall Screening for colon cancer Health Maintenance Due Date Last Done Comments Depression Screening 1962 HOME BP CUFF VALIDATION YEARLY 03/13/2017 03/13/2016 HbA1c 12/25/2021 06/26/2021, 01/11, 01/20/2020, Additional history exists Diabetic Eye Exam 04/01/2022 04/01/2021, 08/17/2019 Albumin/Creatinine Ratio 08/15/2022 022, 08/10/2019, 07/09/2017 Diabetic Foot Exam 08/15/2022 08/15/2021, 0 08/14/2020, 08/08/2019, Additional history exists DTap/Tdap Vaccines (2 - Td or Tdap) 09/14/2023 09/13/2013, 02/16/2001 COVID-19 Vaccine ( season) 2024 03/10/2024, 03/30/2023, 03/30/2023, Additional history exists GFR 07/26/2024 07/26/2023, 06/12, 02/05/2021, Additional history exists Mammogram 08/05/2025 08/05/2024, 11/2023, 04/25/2022, Additional history exists TSH 08/05/2025 08/05/2024, 06/12, 02/05/2021, Additional history exists Colonoscopy 09/11/2025 09/11/2022, 08/2022, 02/01/2014, Additional history exists DXA Scan 08/05/2031 08/05/2024, 04/0 07/2021, 10/05/2014, Additional history exists Zoster Vaccines Completed 02/03/2023, 11/10, 08/08/2019, Additional history exists Pneumococcal Vaccine: 50+ Years Completed 07/10/2023, 06/18/2015, 09/22/2014 Influenza Vaccine (FLU shot) Completed , 03/30/2023, 04/12/2022, Additional history exists HPV (Gardasil) Vaccine Aged Out No lo nger eligible based on patient's age to complete this topic Hepatitis B Vaccine Aged Out No longe r eligible based on patient's age to complete this topic MENINGOCOCCAL (MENACTRA/MENVEO) Aged Out No longer eligible based on patient's age to complete this topic Meningitis B Vaccine (Bexsero/Trumemba) Aged Out No longer eligible based on patient's age to complete this topic documented as of this encounter Medical Devices Implanted Type Area President/Gm [employer] Device Identifier Shelf Expiration Date Model / Serial / Lot Sling Desara Blue Tv 1.1x45cm - [id number] Implanted:Qty: 1 on 12/17/2021 by Tr Dunn MD at [facility] N/A: Perineum [employer] 07/14/2022 [id number] / / [id number] Vertessa Lite Y-Mesh 26x5x4 Cm Implanted:Qty: 1 on 12/17/2021 by Tr Dunn MD at OR [facility] N/A: Perineum [employer] 05/19/2024 [id number] / / Sling Desara 1.1cm X 45cm - [id number] Implanted:Qty: 1 on 12/05/2022 by Tr Dunn MD at OR [facility] N/A: Vagina [employer] 05/08/2027 [id number] / / [id number] documented as of this encounter Visit Diagnoses Diagnosis Personal history of malignant neoplasm of thyroid documented in this encounter Advance Directives * Full Code (Latest Code Status on File) Date Activated Date Inactivated Comments 12/05/2022 12:49 PM 12/05/2022 7:18 PM This order reflects the patients wishes and were consensually agreed upon. Question Answer Comments Discussion of Advance Direct lisa occurred with: Not Discussed due to patient's condition * Full Code Date Activated Date Inactivated Comments 12/17/2021 11:41 AM 12/18/2021 5:42 PM This order re flects the patients wishes and were consensually agreed upon. Question Answer Comments Discussion of Advance Directives occurred with: Not Discussed Care Teams Cryptography Teacher Relationship Specialty Start Date End Date Alma Bob DO [address] [place] [address] PCP - General Family Medicine 08/05/24 documented as of this encounter
--- OUTSIDE RECORDS SUMMARY | 2024-11-11 10:05 | External Medical Summary | Summary of Care ---
Author Name Unknown Organization [facility] Address [address] [place] [address] Phone [phone] Care Team Providers Care Machine Milker Name Role Phone Alma Bob DO Primary Care Provider + Encounter Details Date Type Department Care Team (Late st Contact Info) Description 10/28/2024 Orders Only Radiology, [facility] [address] [place], [place] [id number] Requisition, External Radiology [address] [place] [address] Personal history of malignant neoplasm of thyroid* Allergies No known active allergiesdocumented as of this encounter (statuses as of 10/28/2024) Medications GLUCOSAMINE CHONDROITIN COMPLX PO CAPS 1500mg/1200mg twice daily by mouth 2 Active OMEGA-3 FISH OIL 1200 MG PO CAPS twice daily by mouth 2 Active CALCIUM 9011-2849 MG-UNIT PO CHEW 1chew tab by mouth [...] as of this encounter (statuses as of 10/28/2024) Active Problems Problem Noted Date Diagnosed Date [...] as of this encounter (statuses as of 10/28/2024) Resolved Problems Problem Noted Date Diagnosed Date Resolved Date Abdominal aortic aneurysm (A AA) without rupture 05/10/2019 09/21/2023 Overview (05/10/2019): On xray, accidental finding, 4.3 cm in 2019 Type 2 diabetes mellitus wit h diabetic neuropathy, unspecified 02/04/2019 02/04/2019 Encounter for examination fo r normal comparison and control in clinical research program 11/01/2018 02/13/2020 Overview (10/29/2020): DO NOT DELETE [facility] DETECT Study: Project # [id number], Mill Machinist: Jose Juan Thorne, PhD. SUMMARY: Goal: Establish [...] contact study staff at ; after hours Mill Machinist via the [facility] scroll shear operator . Please contact study team before resolving/deleting from patients problem list. Study phone number: [phone]. Diagnosis changed due to Research Module. Go to Snapshot for study details. Encounter for examination fo r normal comparison and control in clinical research program 11/01/2018 03/13/2022 Overview (10/29/2020): DO NOT DELETE - [facility] DETECT Study: Project # [id number], Mill Machinist: Salvador Servin, MS, MPH. SUMMARY: Goal: Establish [...] contact study staff at ; after hours Mill Machinist via the [facility] scroll shear operator . - Please contact study team before resolving/deleting from patients problem list. Study phone number: [phone]. Diagnosis changed due to Research Module. Go [...] as of this encounter (statuses as of 10/28/2024) Immunizations Name Administration Dates Next Due COVID-19 [...] Care Team (Late st Contact Info) Description 11/01/2024 10:30 AM EDT Appointment Radiology, [facility] [address] [place] [address] 04/03/2025 3:10 PM EDT Office Visit Dermatology, [facility] [address] [place] [address] Gail Mccurdy PA-C [address] [place] [address] Scheduled Orders Name Type Priority Associated Diagnoses Orde r Schedule US HEAD AND NECK Medical Imaging Routine Personal history of malignant neoplasm of thyroid Expected: 11/01/2024, Expires: 11/27/2025 Scheduled Procedures Name Priority Associated Diagnoses Date/Ti [...] 02/05/2021, Additional history exists Colonoscopy 09/11/2025 09/11/2022, 030 08/2022, 02/01/2014, Additional history exists DXA Scan [...] this encounter Medical Devices Implanted Type Area Manager In Home Device Identifier Shelf Expiration Date Model / Serial / Lot Sling Desara Blue Tv 1.1x45cm - [id number] Implanted:Qty: 1 on 12/17/2021 by Tr Dunn MD [place] [facility] [place]/A: Perineum [employer] 07/14/2022 KEVIN-DS01BT V / / [id number] Vertessa Lite Y-Mesh 26x5x4 Cm Implanted:Qty: 1 on 12/17/2021 by Tr Dunn MD at [place] [facility] N/A: Perineum [employer] 05/19/2024 [id number] / / Sling Desara 1.1cm X 45cm - [id number] Implanted:Qty: 1 on 12/05/2022 by Tr Dunn MD at OR [facility] N/A: Vagina [employer] 05/08/2027 KEVIN-DS01 / / [id number] documented as of this encounter Visit Diagnoses Diagnosis Personal history of malignant neoplasm of thyroid- Primary documented in this encounter Advance Directives * [...] Directives occurred with: Not Discussed Care Teams Machine Milker Relationship Specialty Start Date End Date Alma Bob DO [address] [place] [id number] PCP - General Family Medicine 08/05/24 documented as of this encounter
--- OUTSIDE RECORDS SUMMARY | 2024-11-11 10:05 | External Medical Summary | Summary of Care ---
Author Name Unknown Organization [facility] Address [address] [place] [address] Phone [phone] Care Team Providers Care Food Service Steward Name Role Phone Alma Bob DO Primary Care Provider + Reason for Referral * Precert (Within 10 days (routine)) - Authorized Specialty Diagnoses / Procedures Referred By Contac t Referred To Contact Radiology Diagnoses Abdominal aortic aneurysm, without rupture, unspecified (HCC) Thoracic aortic aneurysm without rupture, unspecified part (HCC) Procedures CTA CHEST NON-CORONARY W CONTRAST Access [address] *DO NOT REMOVE THIS DEPARTMENT* [place] [address] Phone: tel: Referral ID Status Reason Start Date Expiration Date V isits Requested Visits Authorized [id number] Authorized 11/05/2024 999 [id number] Encounter Details Date Type Department Care Team (Late st Contact Info) Description 11/05/2024 Orders Only Access [address] *DO NOT REMOVE THIS DEPARTMENT* [place] [id number] Requisition, External Radiology [address] [place] [address] Abdominal aortic aneurysm, without rupture, unspecified (HCC)*; Thoracic aortic aneurysm without rupture, unspecified part (HCC) Allergies No known active allergiesdocumented as of this encounter (statuses as of 11/05/2024) Medications GLUCOSAMINE CHONDROITIN COMPLX PO CAPS 1500mg/1200mg twice daily by mouth 2 Active OMEGA-3 FISH OIL 1200 MG PO CAPS twice daily by mouth 2 Active CALCIUM 4722-3404 MG-UNIT PO CHEW 1chew tab by mouth [...] hours as needed for Gas. 30 Tablet 06/08/202 2 Active Levothyroxine Sodium 75 MCG Oral [...] as of this encounter (statuses as of 11/05/2024) Active Problems Problem Noted Date Diagnosed Date [...] as of this encounter (statuses as of 11/05/2024) Resolved Problems Problem Noted Date Diagnosed Date Resolved Date Abdominal aortic aneurysm (A AA) without rupture 05/10/2019 09/21/2023 Overview (05/10/2019): On xray, accidental finding, 4.3 cm in 2019 Type 2 diabetes mellitus wit h diabetic neuropathy, unspecified 02/04/2019 02/04/2019 Encounter for examination fo r normal comparison and control in clinical research program 11/01/2018 02/13/2020 Overview (10/29/2020): DO NOT DELETE [facility] DETECT Study: Project # [id number], Ems Director: Jose Juan Thorne, PhD. SUMMARY: Goal: Establish [...] contact study staff at ; after hours Ems Director via the [facility] mucking machine operator . Please contact study team before resolving/deleting from patients problem list. Study phone number: [phone]. Diagnosis changed due to Research Module. Go to Snapshot for study details. Encounter for examination fo r normal comparison and control in clinical research program 11/01/2018 03/13/2022 Overview (10/29/2020): DO NOT DELETE - [facility] DETECT Study: Project # [id number], Ems Director: Salvador Servin, MS, MPH. SUMMARY: Goal: Establish [...] contact study staff at ; after hours Ems Director via the [facility] hospital mucking machine operator . - Please contact study team before resolving/deleting from patients problem list. Study phone number: [phone]. Diagnosis changed due to Research Module. Go [...] as of this encounter (statuses as of 11/05/2024) Immunizations Name Administration Dates Next Due COVID-19 [...] Care Team (Late st Contact Info) Description 11/06/2024 9:45 AM EDT Appointment Radiology, [facility] [address] [facility] [place] [address] 04/03/2025 3:10 PM EDT Office Visit Dermatology, Brett Shen [address] [place] [address] Gail Mccurdy PA-C [address] [place] [address] Scheduled Orders Name Type Priority Associated Diagnoses Orde r Schedule CTA CHEST NON-CORONARY W CONTRAST Medical Imaging Routine Abdominal aortic aneurysm, without rupture, unspecified (HCC) Thoracic aortic aneurysm without rupture, unspecified part (HCC) Expected: 11/05/2024, Expires: 12/05/2025 Scheduled Procedures Name Priority Associated Diagnoses Date/Ti [...] 02/05/2021, Additional history exists Colonoscopy 09/11/2025 09/11/2022, 0 08/2022, 02/01/2014, Additional history exists DXA Scan [...] this encounter Medical Devices Implanted Type Area Behavioral Intervention Specialist Device Identifier Shelf Expiration Date Model / Serial / Lot Toby Madrid Tv 1.1x45cm - [id number] Implanted:Qty: 1 on 12/17/2021 by Tr Dunn MD at [place] [facility] N/A: Perineum [employer] 07/14/2022 KEVIN-DS01BT V / / [id number] Vertessa Lite Y-Mesh 26x5x4 Cm Implanted:Qty: 1 on 12/17/2021 by Tr Dunn MD at [place] [facility] N/A: Perineum [employer] 05/19/2024 [id number] / / Sling Desara 1.1cm X 45cm - [id number] Implanted:Qty: 1 on 12/05/2022 by Tr Dunn MD at OR [facility] N/A: Vagina [employer] 05/08/2027 KEVIN-DS01 / / [id number] documented as of this encounter Visit Diagnoses Diagnosis Abdominal aortic aneurysm, without rupture, unspecified (HCC)- Primary Thoracic aortic aneurysm without rupture, unspecified part (HCC) documented in this encounter Advance Directives * [...] Directives occurred with: Not Discussed Care Teams Food Service Steward Relationship Specialty Start Date End Date Alma Bob DO [address] [facility] [place] [address] PCP - General Family Medicine 08/05/24 documented as of this encounter
--- OUTSIDE RECORDS SUMMARY | 2024-11-11 10:05 | External Medical Summary | Summary of Care ---
Author Name Unknown Organization [facility] Address [address] [place] [address] Phone [phone] Care Team Providers Care Crew Person Name Role Phone Alma Bob DO Primary Care Provider + Reason for Referral * Precert (Within 10 days (routine)) - Authorized Specialty Diagnoses / Procedures Referred By Contac t Referred To Contact Radiology Diagnoses Abdominal aortic aneurysm, without rupture, unspecified (HCC) Thoracic aortic aneurysm without rupture, unspecified part (HCC) Procedures CTA CHEST NON-CORONARY W CONTRAST Access [address] *DO NOT REMOVE THIS DEPARTMENT* [place] [address] Phone: tel: Referral ID Status Reason Start Date Expiration Date V isits Requested Visits Authorized [id number] Authorized 11/05/2024 999 999 Reason for Visit * Precert (Within 10 days (routine)) - Authorized Specialty Diagnoses / Procedures Referred By Contac t Referred To Contact Radiology Diagnoses Abdominal aortic aneurysm, without rupture, unspecified (HCC) Thoracic aortic aneurysm without rupture, unspecified part (HCC) Procedures CTA CHEST NON-CORONARY W CONTRAST Access [address] *DO NOT REMOVE THIS DEPARTMENT* [facility] [address] Phone: tel: Referral ID Status Reason Start Date Expiration Date V isits Requested Visits Authorized [id number] Authorized 11/05/2024 999 999 Encounter Details Date Type Department Care Team (Latest Contact Info) Description 11/06/2024 9:33 AM EDT - 11/06/2024 11:59 PM EDT Hospital Encounter Radiology, [facility] [address] [place] [address] Arrived Discharge Disposition: Home - Self Care Allergies No known active allergiesdocumented as of this encounter (statuses as of 11/07/2024) Medications GLUCOSAMINE CHONDROITIN COMPLX PO CAPS 1500mg/1200mg twice daily by mouth 2 Active OMEGA-3 FISH OIL 1200 MG PO CAPS twice daily by mouth 2 Active CALCIUM 4184-9785 MG-UNIT PO CHEW 1chew tab by mouth [...] as of this encounter (statuses as of 11/07/2024) Active Problems Problem Noted Date Diagnosed Date [...] as of this encounter (statuses as of 11/07/2024) Resolved Problems Problem Noted Date Diagnosed Date [...] [facility] DET[facility] Study: Project # [id number], City Planning Teacher: Jose Juan Thorne, PhD. SUMMARY: Goal: Establish [...] contact study staff at ; after hours City Planning Teacher via the [facility] pulpit operator . Please contact study team before resolving/deleting from patients problem list. Study phone number: [phone]. Diagnosis changed due to Research Module. Go to Snapshot for study details. Encounter for examination fo r normal comparison and control in clinical research program 11/01/2018 03/13/2022 Overview (10/29/2020): DO NOT DELETE - [facility] DETECT Study: Project # [id number], City Planning Teacher: Salvador Servin, MS, MPH. SUMMARY: Goal: Establish [...] contact study staff at ; after hours City Planning Teacher via the [facility] hospital pulpit operator . - Please contact study team before resolving/deleting from patients problem list. Study phone number: [phone]. Diagnosis changed due to Research Module. Go to [employer] for study details. Severe obesity with body [...] as of this encounter (statuses as of 11/07/2024) Immunizations Name Administration Dates Next Due COVID-19 [...] Office Visit Dermatology, Brett Shen [address] [place] [address] Gail Mccurdy PA-C [address] [place] [address] Scheduled Procedures Name Priority Associated Diagnoses Date/Ti [...] this encounter Medical Devices Implanted Type Area Finishing Wire Sawyer Device Identifier Shelf Expiration Date Model / Serial / Lot Toniing Frankie Madrid Tv 1.1x45cm - [id number] Implanted:Qty: 1 on 12/17/2021 by Tr Dunn MD at [place] [facility] N/A: Perineum [employer] 07/14/2022 KEVIN-DS01BT V / / [id number] Vertessa Lite Y-Mesh 26x5x4 Cm Implanted:Qty: 1 on 12/17/2021 by Tr Dunn MD at [place] [facility] N/A: Perineum [employer] 05/19/2024 [id number] / / Sling Desara 1.1cm X 45cm - [id number] Implanted:Qty: 1 on 12/05/2022 by Tr Dunn MD at OR [facility] N/A: Vagina [employer] 05/08/2027 KEVIN-DS01 / / [id number] documented as of this encounter Procedures Procedure Name Priority Date/Time Associated Diagnosis Comments CTA CHEST NON-CORONARY W CONTRAST Routine 11/06/2024 9:49 AM EDT Abdominal aortic aneurysm, without rupture, unspecified (HCC) Thoracic aortic aneurysm without rupture, unspecified part (HCC) documented in this encounter Results * CTA CHEST NON-CORONARY W CONTRAST (11/06/2024 9:49 AM EDT) Anatomical Region Laterality Modality Chest, Cardio, Body Computed Jerome ography 11/06/2024 9:29 PM EDT Impressions 11/06/2024 9:27 PM EDT IMPRESSION Stable ectasia of ascending measuring up to 4.1 cm Narrative 11/06/2024 9:27 PM EDT EXAM EXAM: CTA CHEST NON-CORONARY W CONTRAST DATE and TIME: 11/06/2024 9:49 am HISTORY CLINICAL INFORMATION: ABDOMINAL AORTIC ANEURYSM WITHOUT RUPTURE UNSPECIFIED, THORACIC AORTIC ANEURYSM WITHOUT RUPTURE UNSPECIFIED TECHNIQUE High resolution helical ct angiogram of the chest was performed before and during the intravenous administration of intravenous contrast. Advanced 3d reconstructions of the aorta and its branch vessels were performed for optimal vascular evaluation on a [employer] work station. COMPARISON CTA CHEST_ABDOMEN_PELVIS, ACC: [id number], dated 2023-07-26 17:24:09; CT CHEST WO CONTRAST, ACC: [id number], dated 2023-04-17 15:14:04 FINDINGS VASCULAR: Thoracic aorta is patent with no evidence of dissection. Mild atherosclerosis of thoracic aorta. Apparent tri-leaflet aortic valve with no annular calcification. Aortic arch branching is conventional. Major arch vessels are patent to the extent visualized. Main pulmonary artery is mildly prominent with no central filling defect. Sinus of Valsalva measures 3.6 x 3.6 x 3.8 cm. Ascending aorta measures 4.1 cm in maximum dimension, previously measured 4 cm. Descending aorta measures 3 cm in maximum dimension. The visualized abdominal aorta is patent and normal in caliber. Celiac artery is patent. Superior mesenteric artery is patent to the extent visualized. Bilateral renal arteries are patent. Chest: No focal airspace consolidation or suspicious pulmonary nodules. Scattered atelectasis/scarring. Central airways are patent. There is no pleural effusion. No pericardial effusion. No pathologically enlarged thoracic lymph nodes. Upper abdomen: Small hiatal hernia. Mild bilateral adrenal nodularity. Osseous structures: No suspicious lytic or blastic lesions. Multilevel degenerative disc disease in the spine. Procedure Note Hedy Byrnes MD - 11/06/2024 EXAM EXAM: CTA CHEST NON-CORONARY W CONTRAST DATE and TIME: 11/06/2024 9:49 am HISTORY CLINICAL INFORMATION: ABDOMINAL AORTIC ANEURYSM WITHOUT RUPTUREUNSPECIFIED, THORACIC AORTIC ANEURYSM WITHOUT RUPTURE UNSPECIFIED TECHNIQUE High resolution helical ct angiogram of the chest was performed before andduring the intravenous administration of intravenous contrast. Advanced 3d reconstructions of the aorta and its branch vessels wereperformed for optimal vascular evaluation on a [employer] work station. COMPARISON CTA CHEST_ABDOMEN_PELVIS, ACC: [id number], dated 2023-07-26 17:24:09; CT CHEST WO CONTRAST, ACC: [id number], dated 2023-04-17 15:14:04 FINDINGS VASCULAR: Thoracic aorta is patent with no evidence of dissection. Mildatherosclerosis of thoracic aorta. Apparent tri-leaflet aortic valve withno annular calcification. Aortic arch branching is conventional. Majorarch vessels are patent to the extent visualized. Main pulmonary arteryis mildly prominent with no central filling defect. Sinus of Valsalvameasures 3.6 x 3.6 x 3.8 cm. Ascending aorta measures 4.1 cm in maximumdimension, previously measured 4 cm. Descending aorta measures 3 cm inmaximum dimension. The visualized abdominal aorta is patent and normal in caliber. Celiacartery is patent. Superior mesenteric artery is patent to the extentvisualized. Bilateral renal arteries are patent. Chest: No focal airspace consolidation or suspicious pulmonary nodules.Scattered atelectasis/scarring. Central airways are patent. There is nopleural effusion. No pericardial effusion. No pathologically enlargedthoracic lymph nodes. Upper abdomen: Small hiatal hernia. Mild bilateral adrenal nodularity. Osseous structures: No suspicious lytic or blastic lesions. Multileveldegenerative disc disease in the spine. IMPRESSION IMPRESSION Stable ectasia of ascending measuring up to 4.1 cm us Alma Bob DO RAD CT Final Re sult documented in this encounter Visit Diagnoses Diagnosis Abdominal aortic aneurysm, without rupture, unspecified (HCC) Thoracic aortic aneurysm without rupture, unspecified part (HCC) documented in this encounter Administered Medications Inactive Administered Medications - up to 3 most recent administrations Medication Order MAR Action Action Date Dose Rate Site Iopamidol (Isovue 370) inj 80 mL 80 mL, Intravenous, ONCE, On 11/06/24 at 0951, For 1 dose, Radiology Medication Routing (Non-IR) Given 11/06/2024 9:50 AM EDT 80 mL documented in this encounter Advance Directives * [...] Directives occurred with: Not Discussed Care Teams Crew Person Relationship Specialty Start Date End Date Alma Bob DO [address] [place] [address] PCP - General Family Medicine 08/05/24 documented as of this encounter
[2024-11-11] MEDS: ceFAZolin 2000MG 2,000 MG/15 ML SYR IV SCH ×2 (10:49→18:30)
[2024-11-11] MEDS ORDERED: ePHEDrine sulfate 50 MG/5 ML SYR ONE (11:01)
[2024-11-11] MEDS ORDERED: PROPOFOL IV EMULSION 10 MG/ML 100 ML VIAL IV ONE (11:01)
[2024-11-11] MEDS: LR 60ML/HR IV SCH (11:25)
[2024-11-11] MEDS: ORTHO JOINT ANESTHETIC ONE (11:36)
[2024-11-11] MEDS: TRANEXAMIC ACID 1,000 MG **IV Intra-op IV SCH (11:36)
[2024-11-11] MEDS: ROPIV 0.5% 246mg, Ketorolac 30mg, EPINEPHrine 0.5mg in NSS INFIL SCH (11:51)
--- NOTE | 2024-11-11 12:38 | Operative Report ---
PG Post Operative Report Pre & Post Diagnosis Operation Date: 11/11/24 10:40 Pre-Op Diagnosis: Right Knee Degenerative Joint Disease Post-Op Diagnosis: Right Knee Degenerative Joint Disease I identified the patient and participated in the time-out.: Yes Procedure Operation Date: 11/11/24 10:40 Actual Procedures p Right Total Knee Arthroplasty(Right) - Tr Carrizales MD Surgeon Tr Carrizales MD Rail Loader Dereck Price PA-C Estimated Blood Loss 50 Findings Consistent with Post-Op Diagnosis Operative findings reveal advanced right knee tricompartment DJD. She had extensive grade 4 [id number] disease in all 3 compartments with osteophytes in all 3 compartments. Moderate knee joint effusion. Slight 10 to 15 degree flexion contracture. Specimens Right knee sent for pathology. Anesthesia Type Spinal MAC Complications none Indications The patient is a 74-year-old female whose had a long history of knee arthritic symptoms. She had her left knee replaced about 18 years ago. As she has done well from this. Over the years she developed increased pain discomfort and stiffness in her right knee. She failed all conservative measures. She elected proceed with a right total knee arthroplasty. Description of Procedure Operative implants consist of: 1. Biomet Vanguard size 65 right posterior stabilized femoral component. 2. Biomet size 71 tibial tray. 3. 10 mm posterior box polyethylene insert. 4. 31 x 8 all poly patella. The patient was taken to the op room, identified, placed on the operating table in the supine position. All conductors were appropriately padded. IV antibiotics fibra anesthesia team. A spinal anesthetic had been implemented in the holding area. A Cm catheter was placed in sterile fashion. A right thigh tourniquet was then placed. The right lower extremity was then prepped and draped in usual sterile fashion. The right leg was elevated and exsanguinated with use of an Esmarch and a turn was placed at 300 mmHg. An anterior approach of the right knee was then performed through a longitudinal incision centered over the patella. Sharp dissection Through subcutaneous tissue down the extensor mechanism. A medial parapatellar arthrotomy incision was made. Some subperiosteal dissection was carried out medially. The fat pad was resected from beneath the patella tendon. The lateral patellofemoral ligament was released. Patella subluxated laterally and the knee was flexed. The osteophytes taken off distal femur. The ACL PCL then released from the distal femur and the tibia subluxate anteriorly. The external tibial alignment jig was then placed on the anterior face of the tibia and adjusted 14 mm medially. Proximal tibial cut was made to take at most a millimeter bone from the most deficient aspect medial tibial plateau. The tibia sized to size 71. Attention drawn the femur. The distal femur was entered with a sharp drill. Intramedullary canal was suction. A right 5 degree valgus cutting guide was placed. The distal femoral cutting block was pinned in place. This femoral cut was made to take an additional 3 mm of bone off distal femur. The femur was then sized to a size 65. The AP cutting block was pinned parallel to the epicondylar axis which was 4 degrees of external rotation. The anterior cut, anterior chamfer, posterior cut, posterior chamfer cuts were made. The box cutting guide was placed in a just slightly lateral and the box cut was made. The knee was flexed. The remnants of the medial and lateral menisci were excised. The osteophytes were taken off the posterior aspect of femur. A trial femoral component was placed. The tibial tray was pinned in Gerda external rotation and the drill and stem punch used to create defect in the proximal tibia for the tibial tray. Knee was then trialed and the 10 mm insert fit most appropriately. Attention drawn the patella. The patella was cleaned of all soft tissue. Patella thickness measured 23 mm in thickness was cut down to 15. Was sized to a size 31 patella. The lug holes were drilled for 31 patella. The lateral osteophytes removed. Patella button was placed. Knee was taken through range of motion and the patella tracked nicely with no thumbs test. Attention then drawn to placement permanent components. All trial components were removed. Bone plug was placed in the distal femur limb of blood loss. A double batch Pal[place]os G cement was mixed. A Biomet Vanguard size 65 right posterior stabilized femoral component, a size 71 tibial tray, a 10 mm posterior stabilized polyethylene insert, and a 31 x 8 all poly patella then cemented in place. The knee was brought out into full extension till cement hardened. Final cement was then performed. The pericapsular tissues were injected with total of 100 cc of Ortho mix. The patient did receive 1 g tranexamic acid. The tourniquet was then let down for final tourniquet time 51 minutes. Hemostasis assured use electrocautery. The extensor Metros then closed with combination of #1 PDS suture #1 Vicryl suture in a [id number] fashion. Extensor Meclomen checked found to be intact with subcutaneous tissue then closed with 2 Dexon suture in a buried interrupted fashion skin was closed skin ammon. Leg was then cleaned and dried and a sterile dressing with Xeroform, 4 fours, sterile cast padding, Pablo bandage were applied. Patient then transferred to the recovery room stable condition. Patient tolerated procedure well and there were no complications. Dereck Price, my physician autopsy assistant, was present for the entire procedure. His assistance was essential and required for appropriate patient positioning, prepping and draping, surgical exposure, performing the technical details of the operation, placement the implants, closure of the wound, and placement of the sterile bandage. I attest to the content of the Intraoperative Record and any orders documented therein. Any exceptions are noted below.
--- NOTE | 2024-11-11 12:53 | XRay Report ---
XR knee RT 1 or 2V routine HISTORY: 74 years-old Female Surgical Post Op COMPARISON: Radiographs 09/09/2024 TECHNIQUE: 2 views of the right knee FINDINGS: Total joint arthroplasty with patellar resurfacing. Anterior midline skin ammon with expected posto perative soft tissue swelling and deep tissue air. No acute fracture or unexpected opaque foreign bod y. IMPRESSION: Total joint arthroplasty with expected postoperative changes. ACT 112: Negative or not required by law. The above report was generated using voice recognition software. It may contain grammatical, syntax o r spelling errors. Electronically signed by: Julio Plasencia M.D. 11/11/2024 12:51 PM
[2024-11-11 14:21] LABS: Hematocrit (blood only) 37.5 % (37.0-47.0); Hemoglobin 12.7 g/dl (12.0-16.0); Mean Corpuscular Hemoglobin 30.3 pg (25.0-34.0); Mean Corpuscular Hgb Conc 33.9 g/dL (32.0-36.0); Mean Corpuscular Volume 89.5 fL (80.0-100.0); Mean Platelet Volume 10.4 fL (9.4-12.4); Platelet Count 190 K/uL (130-400); RDW Coefficient of Variation 12.7 % (11.5-14.5); RDW Standard Deviation 41.3 fL (36.4-46.3); Red Blood Count 4.19 M/uL (4.20-5.40); White Blood Count 6.04 K/ul (4.8-10.8)
[2024-11-11 14:39] LABS: Calcium 8.6 mg/dl (8.6-10.3); Creatinine Clr Calc Pharmacy 61.3 ml/min; Potassium 3.5 mmol/L (3.5-5.1)
[2024-11-11 14:43] LABS: Basophils # (auto) 0.03 K/uL (0.00-0.20); Basophils % (auto) 0.5 %; Eosinophils # (auto) 0.01 K/uL (0.00-0.50); Eosinophils % (auto) 0.2 %; Hypersegmented Neutrophils 1+; Immature Granulocytes # (auto) 0.04 K/uL (0.01-0.20); Immature Granulocytes % (auto) 0.7 %; Lymphocytes # (auto) 0.43 K/uL (1.20-3.40); Lymphocytes % (auto) 7.1 %; Monocytes # (auto) 0.04 K/uL (0.11-0.59); Monocytes % (auto) 0.7 %; Neutrophils # (auto) 5.49 K/uL (1.40-6.50); Neutrophils % (auto) 90.8 %
[2024-11-11 14:46] LABS: Troponin I High Sensitivity 5.4 pg/ml (0-14)
--- NOTE | 2024-11-11 15:20 | Communication Note ---
Date of Service: November 11, 2024 pt c/o CP (heaviness on her chest) post right TKA, labs drawn, EKG, d/w surgeon, Trop 5 (within normal range but expected to be 0, EKG looks same as prior and all CP resolved with time, no other constitutional cardiac sx, will get Med consult.
--- NOTE | 2024-11-11 15:21 | Anesthesiology Progress Note ---
Date of Service November 11, 2024 Anesthesia Post Procedure Vital Signs Vital Signs: Temp Pulse Pulse Pulse Resp BP Pulse Ox 11/11/24 15:15 57 L 16 145/89 H 97 11/11/24 15:05 58 L 17 152/83 H 97 11/11/24 14:55 62 13 150/87 H 98 11/11/24 14:45 57 L 16 137/83 98 11/11/24 14:35 60 14 149/91 H 98 11/11/24 14:25 60 13 141/80 H 96 11/11/24 14:15 63 12 136/77 97 11/11/24 14:05 66 14 140/81 97 11/11/24 13:55 62 13 135/78 97 11/11/24 13:45 36.4 C L 64 10 L 137/75 97 11/11/24 13:35 65 12 131/78 97 11/11/24 13:25 68 10 L 132/81 98 11/11/24 13:15 69 9 L 130/77 97 11/11/24 13:05 73 13 141/80 H 98 11/11/24 12:55 72 15 123/73 92 11/11/24 12:45 78 16 123/68 91 11/11/24 12:35 72 12 119/67 97 11/11/24 12:28 36.6 C 75 16 119/64 97 11/11/24 12:08 70 11/11/24 09:13 36.5 C 57 L 20 163/92 H 97 O2 Del Method O2 Flow Rate 11/11/24 15:15 Nasal Cannula 2 11/11/24 15:05 Nasal Cannula 2 11/11/24 14:55 Nasal Cannula 2 11/11/24 14:45 Nasal Cannula 2 11/11/24 14:35 Nasal Cannula 2 11/11/24 14:25 Nasal Cannula 2 11/11/24 14:15 Nasal Cannula 2 11/11/24 14:05 Nasal Cannula 2 11/11/24 13:55 Nasal Cannula 2 11/11/24 13:45 Nasal Cannula 2 11/11/24 13:35 Nasal Cannula 2 11/11/24 13:25 Nasal Cannula 2 11/11/24 13:15 Nasal Cannula 2 11/11/24 13:05 Nasal Cannula 2 11/11/24 12:55 Room Air 11/11/24 12:45 Room Air 11/11/24 12:35 Oxymask 5 11/11/24 12:28 Oxymask 10 11/11/24 12:08 11/11/24 09:13 Room Air Pain Intensity Right Knee: Pain Intensity: 2 Chest: Pain Intensity: 3 Transfer of Care Handoff Completed per policy Notes Mental Status: alert / awake / arousable Patient Amnestic to Procedure: Yes Nausea / Vomiting: adequately controlled Pain: adequately controlled Airway Patency, RR, SpO2: stable & adequate BP & HR: stable & adequate Hydration State: stable & adequate Neuraxial Anesthesia: was administered and sensory block is resolving Anesthetic Complications: no major complications apparent and Pt Satisfied with anesthetic care Notes: CP in PACU- see note in chart, med consult in now CP free
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
[2024-11-11] MEDS ORDERED: PHARMACY GLYCEMIC MGMT CONSULT PRN (17:40)
[2024-11-11] MEDS ORDERED: GLUCAGON FOR INJ 1 MG VIAL SQ PRN (17:40)
[2024-11-11] MEDS ORDERED: HYDROmorphone INJ 0.5 MG/0.5 ML SYR IV PRN (17:40)
[2024-11-11] MEDS ORDERED: GLUCOSE 40% GEL 15 GM TUBE PO PRN (17:40)
[2024-11-11] MEDS ORDERED: CARBOHYDRATES FOR HYPOGLYCEMIA PO PRN (17:40)
[2024-11-11] MEDS ORDERED: DEXTROSE 50% 50 ML SYRINGE IV PRN (17:40)
[2024-11-11] MEDS ORDERED: ASCORBIC ACID 500 MG TAB PO SCH (17:40)
[2024-11-11] MEDS ORDERED: NALOXONE HCL 0.4 MG/1 ML VIAL/CARP IV PRN (17:40)
[2024-11-11] MEDS ORDERED: METOCLOPRAMIDE HCL INJ 5 MG/ML 2 ML VIAL IV PRN (17:40)
[2024-11-11] MEDS ORDERED: ALUMINUM/MAGNESIUM SUSP 30 ML UDC PO PRN (17:40)
[2024-11-11] MEDS ORDERED: MAGNESIUM HYDROXIDE SUSP 30 ML UDC PO PRN (17:40)
[2024-11-11] MEDS ORDERED: bisacodyL 10 MG SUPP PR PRN (17:40)
[2024-11-11] MEDS ORDERED: GLUCOSE 10 TAB/TUBE PO PRN (17:40)
[2024-11-11] MEDS: SODIUM CHLORIDE 0.9% 1,000 ML IV SCH (18:30)
[2024-11-11] MEDS: KETOROLAC TROMETHAMINE 15 MG/ML VIAL IV SCH (18:30)
[2024-11-11] MEDS: SERTRALINE HCL 50 MG TABLET PO SCH (20:40)
[2024-11-11] MEDS: TRANEXAMIC ACID / 0.7% NACL 1,000 MG/100 ML BAG IV SCH (20:41)
[2024-11-11] MEDS: OMEGA-3 (PURIFIED FISH OIL) 1 GM CAP PO SCH (20:41)
[2024-11-11] MEDS: ATORVASTATIN 20 MG TAB PO SCH (20:41)
[2024-11-11] MEDS: ASPIRIN 81 MG ECTAB PO SCH (20:41)
[2024-11-11] MEDS: SENNA 8.6 MG TAB PO SCH (20:41)
[2024-11-11] MEDS: DOCUSATE SODIUM 100 MG CAP PO SCH (20:41)
[2024-11-11] MEDS: CALCIUM CARBONATE 1250MG TAB PO SCH (20:41)
[2024-11-11] MEDS: PANTOprazole 40 MG TAB PO SCH (20:41)
[2024-11-11] MEDS: POLYETHYLENE (MIRALAX) 17 GM PACK PO SCH (20:41)
[2024-11-11] MEDS: GLUCOSAMINE SULFATE 500 MG CAP PO SCH (20:43)
[2024-11-11] MEDS: LANTUS PER UNIT CHARGE SC SCH (20:47)
[2024-11-11] MEDS: INSULIN ASPART PER UNIT CHARGE SC SCH (20:48)
[2024-11-11] MEDS ORDERED: SENNA 8.6 MG TAB PO SCH (21:00)
[2024-11-11] MEDS ORDERED: ASPIRIN 81 MG ECTAB PO SCH (21:00)
--- NOTE | 2024-11-11 23:15 | Electrocardiogram Report ---
Test Reason : Blood Pressure : */* mmHG Vent. Rate : 70 BPM Atrial Rate : 70 BPM P-R Int : 188 ms QRS Dur : 122 ms QT Int : 444 ms P-R-T Axes : 35 -17 -10 degrees QTcB Int : 479 ms Normal sinus rhythm Left ventricular hypertrophy with QRS widening Nonspecific T wave abnormality Abnormal ECG When compared with ECG of 21-Oct-2024 11:17, QRS duration has increased T wave inversion now evident in Inferior leads Nonspecific T wave abnormality now evident in Anterior leads QT has lengthened Confirmed by Jaiden Samuel ([id number]) on 11/11/2024 11:15:21 PM Referred By: Tr Carrizales Confirmed By: Jaiden Samuel
[2024-11-12] MEDS: LIOTHYRONINE SODIUM 5 MCG TAB PO SCH (05:46)
[2024-11-12] MEDS: LEVOTHYROXINE SODIUM 75 MCG TABLET PO SCH (05:47)
[2024-11-12 06:05] LABS: Hematocrit (blood only) 33.9 % (37.0-47.0); Hemoglobin 11.4 g/dl (12.0-16.0); Mean Corpuscular Hemoglobin 30.4 pg (25.0-34.0); Mean Corpuscular Hgb Conc 33.6 g/dL (32.0-36.0); Mean Corpuscular Volume 90.4 fL (80.0-100.0); Mean Platelet Volume 10.3 fL (9.4-12.4); Platelet Count 208 K/uL (130-400); RDW Coefficient of Variation 12.7 % (11.5-14.5); RDW Standard Deviation 41.8 fL (36.4-46.3); Red Blood Count 3.75 M/uL (4.20-5.40); White Blood Count 14.14 K/ul (4.8-10.8)
[2024-11-12 06:27] LABS: BUN Creatinine Ratio 28.1 (10-20); Calcium 8.2 mg/dl (8.6-10.3); Creatinine Clr Calc Pharmacy 43.6 ml/min; Potassium 4.2 mmol/L (3.5-5.1)
--- NOTE | 2024-11-12 07:35 | Orthopedic Progress Note ---
Date of Service November 12, 2024 Assessment & Plan (1) Status post right knee replacement: Plan: 74-year-old female with multiple medical comorbidities now postop day 1 from right knee replacement complicated by an episode of chest pain recovery room. She is recovered from this. Workups been negative to date. Feeling fine this morning. Pains been pretty well-controlled. Plan: 1. DVT prophylaxis including thigh-high teds, SCDs, aspirin twice a day. 2. PT/OT. Weight-bear as taught. Right total knee protocol. 3. Pain control. Doing well with current pain regimen. 4. Chest pain. Seems to be resolved. Workups been negative to date. Hospitalist management. 5. Disposition. Plan is to discharge to home with some home health. Will do therapy today. Assuming the chest pain workup is further negative we will proceed with likely discharge with home health. (2) Atypical chest pain: (3) Hyperlipidemia: (4) Type 2 diabetes mellitus: (5) GERD (gastroesophageal reflux disease): (6) Hypothyroidism: (7) Hypertension: Admission and Anticipated Discharge Date Admission Date: November 11, 2024 Subjective 74-year-old female postop day 1 from a right knee replacement. She is doing quite well this morning. She had about a 20-minute episode of chest pain postoperatively and recovering which is resolved. Workup to date has been negative. No further recurrence of the chest pain. Knee pain has been manageable. Physical Exam Physical Exam: Physical nation was a pleasant elderly female. Lying in bed looks pretty comfortable this morning. Examination of the right leg reveals the leg to be well aligned. Dressings clean dry and intact. She has struggles with doing a straight leg raise. She can dorsiflex and plantarflex her foot appropriately. She is neurologically intact. Respiratory: normal respiratory effort, lungs clear to auscultation Cardiovascular: RRR, no murmur, no edema Gastrointestinal (Abdomen): normal bowel sounds, soft, nontender, no hepatosplenomegaly Results & Data Vital Signs (Past 12 Hours) Vital Signs Temp Pulse Pulse Resp BP Pulse Ox O2 Del Method 11/12/24 07:22 55 L 11/12/24 04:27 36.7 C 63 17 148/76 H 94 Room Air 11/11/24 23:45 36.7 C 60 17 144/74 H 93 Room Air 05/02/25 23:11 66 11/11/24 19:41 36.9 C 66 17 143/85 H 93 Room Air Laboratory Results Hemoglobin is 11.4. Hematocrit is 33.9. Electrolytes are stable. Troponin is normal.
[2024-11-12 07:49] VITALS: PULSE 57; RESP 18; TEMP 98.2
[2024-11-12] MEDS: dexAMETHasone 10 MG in SYRINGE 0 ML IV SCH (08:04)
[2024-11-12] MEDS: ASCORBIC ACID 500 MG TAB PO SCH (08:05)
[2024-11-12] MEDS: ATENOLOL 50 MG TABLET PO SCH (08:06)
[2024-11-12] MEDS: hydroCHLOROthiazide 25 MG TAB PO SCH (08:07)
[2024-11-12] MEDS: ADVANCED PROBIOTIC 625 MG CAPSULE PO SCH (08:07)
[2024-11-12] MEDS: MULTIVITAMIN TAB PO SCH (08:07)
[2024-11-12] MEDS: lisinopril 40 MG TAB PO SCH (08:07)
[2024-11-12 08:09] LABS: Troponin I High Sensitivity 4.6 pg/ml (0-14)
[2024-11-12] MEDS: PSYLLIUM or GUAR GUM FIBER 4GM PACKET PO SCH (08:09)
[2024-11-12] MEDS: MAGNESIUM OXIDE 400 MG TAB PO SCH (08:16)
[2024-11-12] MEDS: oxyCODONE HCL IR 5 MG TAB (IMMEDIATE RELEASE) PO PRN (09:43)
[2024-11-12 09:47] VITALS: BP 148/76
[2024-11-12 13:20] VITALS: O2SAT 95
--- NOTE | 2024-11-15 15:15 | Discharge Summary ---
Date of Service November 15, 2024 Admission HPI (Per Admitting) . The patient is a 74-year-old female who now presents for surgical treatment of the right knee. She had a long history of knee problems and specifically right knee pain. She does have a history of a left knee replacement in the past. We have been putting shots in her knees over the years which would become less successful. Her most recent viscosupplementation helped for a very brief period of time. Pains become more disabling. Mostly medial pain. The more she is up and onto more it hurts. She is ready to have her right knee fixed. Very happy with the left knee replacement. Admission Exam (Per Admitting) . Physical examination reveals a pleasant middle-age female. She looks to be in good health. Examination of the right knee reveal patient walks with a bit of a limp. Got varus alignment to her knee. She has a little bit of a varus thrust with weightbearing. She got bony hypertrophy medially. Range of motion is about 5-1 15. No instability. Examination of the left knee reveals a well-healed incision. She got anatomic alignment to the knee. No swelling. No knee effusion. Range of motion 0-1 25. Principal Diagnosis Same as "Discharge Diagnosis" noted below under Discharge Instructions. Discharge Data Consultations 11/11/24 14:55 Consult Hospitalist Routine Procedures Performed Operation Date: 11/11/24 10:40 Actual Procedures p Right Total Knee Arthroplasty(Right) - Tr Carrizales MD Ordered Studies 11/11/24 05:00 US - OR guided needle placemen Routine Hospital Course (1) Status post right knee replacement: This is a 74 year old patient admitted on 11/11/24 and underwent total knee arthroplasty. She tolerated the procedure well and there were no complications. Transferred to the PACU post op where she did have an episode of some chest pain. Hospitalist service was consulted for further management of that. She was transferred to the PCU for further care. Her troponin was negative and her symptoms resolved. She was given ancef for antibiotic prophylaxis. She was also given IGNACIO stockings, SCDs, and aspirin for DVT prophylaxis. Hemoglobin, hematocrit, and vital signs were monitored during her hospital stay and remained stable. Did not require any blood transfusions. There were no complications during her hospital stay. By post op day #1 the patient was tolerating a diabetic diet, pain was reasonably controlled with oral pain medicine, and she was participating in physical therapy. On post op day #1 the patient was discharged home and set up with home health care. She was given printed discharge instructions including prescriptions for extra strength tylenol, aspirin, cefadroxil, ketorolac, zofran, senokot, and oxycodone. Continue physical therapy, weight bearing as tolerated. Continue IGNACIO stockings. Follow up approximately 2 weeks post op or sooner if there are problems or concerns. PG Care Time/CCT Total # of Minutes Spent Total Time Spent with Patient: Total time spent is greater than 50% in coordination of care (as documented) at patient's floor/unit and/or counseling patient: Discharge Plan Discharge Items Patient Disposition: Home - Home Health Services Reason For Visit: Right Knee Osteoarthritis Discharge Diagnosis: Right Knee Replacement Activity: Per Instructions section Weightbearing: Full weightbearing Non-emergency contact: Surgeon Call non-emergency contact if: you have any medication questions Follow-up/Referrals: Alma Bob, [Primary Care Provider] - Diet: Carb Consistent or DM2 Addtl Attending Provider Instructions: ACTIVITY RECOMMENDATIONS: Diet: * You may resume previous diet. Physical Therapy: * You will go to physical therapy three times each week for four to six weeks after your surgery in order to regain your knee range of motion and to retrain your knee to work properly. * It is just as important to make sure you are getting your knee perfectly straight as it is to regain your knee bend. * Taking a pain pill an hour before therapy can help you have a more productive and comfortable therapy session. Home Exercise: * You were shown a series of exercises (heel props, heel slides, etc.) in the hospital. Do these exercises three to four times each day including the exercises you were shown in physical therapy. Walking: * Get up and walk several times each day. For the first four weeks, try not to stand or walk for more than one hour at a time. If you do stand or walk for more than one hour, you will not hurt anything, but your knee and leg will likely swell. * As you feel comfortable, you may change from the walker or crutches to a cane and then to independent walking. MEDICATIONS: New Medicine: * You will likely be taking one or more of these medications: 1. Oxycodone - A quick and shorter-acting pain medication. Take one to two tablets every six hours to lessen your pain. 2. Aspirin - Thins your blood to lessen the chance of forming a blood clot. * The most common side effects of pain medicine and iron are nausea and constipation. If nausea or constipation is too much of a problem or if you have any questions about your new medicines or doses, call [facility] at . We will try to help you manage these issues. "VERY IMPORTANT TO READ AND REVIEW" Pain: * The immediate post-operative period after knee replacement surgery is often quite painful. * You are given a prescription for pain medicine. You should take it, as directed, when you need it, especially before physical therapy and before going to bed. Pain that interferes with sleep is very common and can last several months. * You will likely need pain medicine for the first four to six weeks. It will not stop all of the pain. The pain will lessen and as you feel better, you may change to milder pain medicine such as Tylenol. * The most common side effects of pain medicine are nausea and constipation, so don't take more than you need. SPECIAL CARE INSTRUCTIONS: TEDs/Elastic Stockings: * The white elastic stockings help limit swelling and prevent blood clots from forming in your legs. The more you wear them, the more they work. * Wear them for six weeks after knee replacement surgery and four weeks after partial knee replacement. Incision Site Care: * Remove dressing postoperative day 2 and then shower. Keep direct shower pressure off the incision site. * After showering, cover ammon with dry gauze and change daily or more frequently if the dressing is getting saturated with drainage. * Use the IGNACIO stockings to hold dressing in place. DO NOT apply tape on the skin. * May completely stop using bandage if wound is dry and no drainage * [place] are removed between 2 and 3 weeks post-op. If your follow-up appointment is made before 2 weeks, please have your appointment re- scheduled. It is too early to remove the ammon. Prevention of Infection: * Take antibiotics one hour before any dental cleaning, dental work, urological procedure, gastrointestinal procedure or any invasive surgery in order to prevent your new joint from getting infected. * You may get the antibiotics from the doctor performing the procedure or you may call our office at [phone] before and we will call in a prescripti on to the pharmacy of your choice. Things to Watch For: * Drainage from the incision site that occurs more than one week after your surgery. * Severely increased knee/leg pain or swelling. * Increased redness at the incision site. * Fever above 102 degrees Fahrenheit. * Unusual chest pain or shortness of breath. * Unusual pain or burning with urination. Call [facility] at [phone] with any of the above problems or if you have any questions about your medicines or recovery. FOLLOW UP VISIT: Make an appointment to see your doctor for approximately two weeks after surgery for a progress check and staple removal by calling the office at [phone]. Pending Studies at Discharge: No Stand-Alone Forms: My [facility], Smoking Cessation Medications and DC Order Prescriptions: Continued amoxicillin 500 mg tablet 2,000 mg PO ONCE Qty: 4 2RF Rx Instructions: TAKE 4 TABLETS ONE HOUR PRIOR TO DENTAL WORK ascorbic acid (vitamin C) 1,000 mg capsule 1 g PO QAM Qty: 90 1RF aspirin [Adult Low Dose Aspirin] 81 mg tablet,delayed release (DR/EC) 81 mg PO BID Qty: 90 1RF Patient Comments: was taking 2 tablets, 2 weeks ago went to 1 tablet calcium carbonate 600 mg calcium (1,500 mg) tablet 1,200 mg PO BID Qty: 180 1RF Glucos Chond Cplx Advanced 750 mg-100 mg- 125 mg-1.65 mg tablet 1 tab PO BID Qty: 180 1RF magnesium oxide 400 mg magnesium capsule 400 mg PO QAM Qty: 90 1RF omega [id number]-fish oil [Fish Oil] 1,200 (144-216) mg capsule 1 cap PO BID Qty: 180 1RF lisinopril 40 mg tablet 40 mg PO QAM Qty: 90 3RF atenolol 50 mg tablet 50 mg PO QAM Qty: 90 3RF hydrochlorothiazide 12.5 mg capsule 12.5 mg PO QAM Qty: 90 3RF sertraline [Zoloft] 50 mg tablet 50 mg PO QPM Qty: 90 1RF Rx Instructions: 1 tab po daily pantoprazole 40 mg tablet,delayed release (DR/EC) 40 mg PO BID Qty: 180 3RF oxycodone 5 mg tablet 5 - 10 mg PO Q6 PRN (Reason: pain) Qty: 40 0RF Rx Instructions: Take as needed for pain ondansetron 4 mg tablet,disintegrating 4 mg PO Q8 PRN (Reason: nausea) Qty: 20 1RF Rx Instructions: Take as needed for nausea sennosides [Senokot] 8.6 mg tablet 8.6 mg PO BID 14 Days Qty: 28 0RF Rx Instructions: Take two times a day to prevent/treat constipation acetaminophen [Tylenol Extra Strength] 500 mg tablet 1,000 mg PO TID 30 Days Qty: 180 0RF Rx Instructions: Take 3 times per day to lessen pain. aspirin [Kat Low Dose Aspirin] 81 mg tablet,delayed release (DR/EC) 81 mg PO BID 45 Days Qty: 90 0RF Rx Instructions: Take to prevent blood clots. cefadroxil 500 mg capsule 500 mg PO BID 7 Days Qty: 14 0RF Rx Instructions: Take 1 cap twice a day to prevent infection atorvastatin 20 mg tablet 20 mg PO QPM Qty: 90 3RF liothyronine 5 mcg tablet 10 mcg PO QAM Qty: 90 1RF levothyroxine 75 mcg tablet 75 mcg PO QAM Qty: 90 1RF Probiotic 1 cap PO QAM polyethylene glycol 3350 [Miralax] 17 gram/dose Powder 17 g PO HS Metamucil 3.4 gram/5.4 gram Powder 1 tbsp PO QAM Rx Instructions: mix into at least 8 oz of water or juice before administering Discontinued diclofenac sodium 75 mg tablet,delayed release (DR/EC) 75 mg PO BID PRN (Reason: pain) Qty: 60 2RF Rx Instructions: take with food ibuprofen 600 mg tablet 600 mg PO Q6H PRN (Reason: pain) Qty: 90 0RF Admission Data Admit Date/Time: 11/11/24 12:31 Attending Provider: Tr Carrizales Admit Provider: Tr Carrizales Primary Care Provider: Alma Bob Other Providers: Latrell Darling Other Interventions: Discharge Summary Assessment (RN) Last Done: 11/12/24 09:42
== END 2024-11-12 13:13 | disposition home health service (06) ==
LOC: ASU 08:29 → PACUINP 08:29 → 2E 17:38